=== PATIENT | male | born 1970 | race Caucasian/White ===

== ENCOUNTER → 2019-01-09 | Outpatient (CLI) | payer OTHER ==
--- NOTE | 2019-01-09 18:58 | REP ---
RIGHT WRIST, FOUR VIEWS: HISTORY: Pain. There is no acute fracture or dislocation. The joint spaces are normal in appearance. IMPRESSION:There is no acute fracture or dislocation. Electronically Signed by Jose Fraire MD 01/09/2019 06:58 P
== END ==
LOC: M WUC 17:56
PROVIDERS: ATTEND Physician Assistant
DX: M25.531 Pain in right wrist (principal)

== ENCOUNTER 2019-06-26 10:31 | Emergency (ER) | payer OTHER ==
[~2019-06-26] VITALS: Ht 182.9 cm; Wt 93.2 kg
[2019-06-26] MEDS ORDERED: OMEP10CASR PO (10:50)
[2019-06-26] MEDS ORDERED: DULO1CAP4 PO (10:50)
[2019-06-26] MEDS ORDERED: KETOROLAC 60 MG/2 ML VIAL (J1885) IM ONE (11:15)
[2019-06-26] MEDS ORDERED: LIDOCAINE 5% (LIDODERM) PATCH TD ONE (11:15)
[2019-06-26] MEDS ORDERED: CYCLOBENZAPRINE 10 MG TAB PO ONE (11:15)
[2019-06-26] MEDS ORDERED: ACETAMINOPHEN 500 MG TAB PO ONE (11:15)
--- NOTE | 2019-06-26 12:24 | REP ---
REASON: Muscle spasm. FINDINGS: Five views of the lumbosacral spine show no acute fracture, dislocation or subluxation. The intervertebral disc spaces are symmetric and well maintained. There is no spondylolisthesis. The pedicles are intact bilaterally and there is no destructive osseous lesions. IMPRESSION: Unremarkable lumbosacral spine series. Electronically Signed by Jayant Mchugh DO 06/26/2019 02:20 P
--- NOTE | 2019-06-26 12:26 | REP ---
REASON: Muscle spasm. AP pelvis shows bilateral moderate asymmetric hip joint space narrowing without prominent marginal osteophytosis or buttressing. There is no fracture. BILATERAL HIPS: There is a bilateral asymmetric hip joint space narrowing, which is mild to moderate. There is no fracture or buttressing. Electronically Signed by Jayant Mchugh DO 06/26/2019 02:20 P
[2019-06-26 12:33] VITALS: BP 139/82
[2019-06-26] MEDS ORDERED: KETO10TAB PO (12:36)
[2019-06-26] MEDS ORDERED: CYCL10TA PO (12:36)
[2019-06-26] MEDS ORDERED: **NOTE PATIENT COMMENT** MISC XX SCH (21:00)
== END 2019-06-26 12:43 | disposition home or self-care (01) ==
LOC: M ED 10:31
DX: G89.29 Other chronic pain (principal); M54.5 Low back pain; Z72.0 Tobacco use; Z79.899 Other long term (current) drug therapy
CPT/HCPCS: 72110; 73521; 96372; 99283; J1885

== ENCOUNTER 2021-02-20 10:45 | Emergency (ER) | payer OTHER ==
[~2021-02-20] VITALS: Ht 182.9 cm; Wt 94.0 kg
[~2021-02-20 10:45] MED LIST: CYCL-707 PO; DULO1CAP4 PO; KETO10TAB PO; OMEP10CASR PO
[2021-02-20] MEDS ORDERED: ATOR40TA75 PO (11:04)
[2021-02-20] MEDS ORDERED: LOSA50TA88 PO (11:04)
--- NOTE | 2021-02-20 11:22 | REP ---
INDICATION: MORTON COMPARISON: None. TECHNIQUE: Axial noncontrast images from the skull base to the vertex with coronal reformations. This CT examination was performed using the following dose reduction techniques: Automated exposure control, adjustment of mA and/or kv according to the patient's size, and use of iterative reconstruction technique. FINDINGS: The ventricles, sulci, and cisterns are normal in position and appearance. Killian-white differentiation is maintained. No acute intracranial hemorrhage, mass/mass effect, pathology or trauma/injury. No evidence for acute infarction. No extra-axial fluid collection. Calvarium is intact. Paranasal sinuses and mastoid air cells are clear. IMPRESSION: Normal noncontrast head CT. No evidence for acute intracranial pathology or trauma/injury. <Electronically signed by Sumeet Willoughby > 02/20/21 [id number]
[2021-02-20 12:29] VITALS: BP 138/95
--- NOTE | 2021-02-21 06:28 | ECGEPIP ---
[facility] - ED Test Date: 2021-02-20 Pat Name: REJI BENAVIDES Department: Room: - Gender: Male Packager: MARCELINO : 1970 Requested By: Laura Johnson Order Number: [id number] Reading MD: Melanie Miller Measurements Intervals [place] Rate: 81 P: 49 [place]: 164 QRS: 4 QRSD: 74 T: 31 QT: 346 QTc: 401 Interpretive Statements Normal sinus rhythm Nonspecific ST T wave changes Delayed R wave progression 01/10/[address] T wave changes Electronically Signed on 02-21-2021 6:28:50 EDT by Melanie Miller
== END 2021-02-20 12:30 | disposition home or self-care (01) ==
LOC: M ED 10:45
DX: I10 Essential (primary) hypertension (principal); G47.30 Sleep apnea, unspecified; F43.10 Post-traumatic stress disorder, unspecified; F17.200 Nicotine dependence, unspecified, uncomplicated; Z79.899 Other long term (current) drug therapy

== ENCOUNTER 2021-04-03 08:28 | Emergency (ER) | payer OTHER ==
[~2021-04-03] VITALS: Ht 182.9 cm; Wt 95.9 kg
[~2021-04-03 08:28] MED LIST changes: +ATOR40TA75 PO; +LOSA50TA88 PO
[2021-04-03] MEDS ORDERED: METH2.5T48 PO (08:32)
[2021-04-03] MEDS ORDERED: KETOROLAC 60MG 2ML VIAL IM ONE (09:30)
[2021-04-03] MEDS ORDERED: LIDOCAINE 5% (LIDODERM) PATCH TD ONE (09:30)
[2021-04-03 09:32] VITALS: BP 128/83
[2021-04-03] MEDS ORDERED: METH-1165 PO (09:33)
[2021-04-03] MEDS ORDERED: PRED20TA PO (09:33)
[2021-04-03] MEDS ORDERED: LIDO5DIS41 TD (09:33)
[2021-04-03] MEDS ORDERED: **NOTE PATIENT COMMENT** MISC XX SCH (21:00)
== END 2021-04-03 10:03 | disposition home or self-care (01) ==
LOC: M ED 08:28
DX: G89.29 Other chronic pain (principal); M54.5 Low back pain; I10 Essential (primary) hypertension; E78.5 Hyperlipidemia, unspecified; G47.33 Obstructive sleep apnea (adult) (pediatric); K21.9 Gastro-esophageal reflux disease without esophagitis; F33.9 Major depressive disorder, recurrent, unspecified; Z79.899 Other long term (current) drug therapy
CPT/HCPCS: 96372; 99283; J1885

== ENCOUNTER 2025-05-30 08:42 | Emergency (ER) | payer OTHER ==
[~2025-05-30] VITALS: Ht 182.9 cm; Wt 92.1 kg
[~2025-05-30 08:42] MED LIST changes: +LIDO1ADH93 TD; +LOSA50TA28 PO; -LOSA50TA88 PO; +METH-1165 PO; +METH2.5T48 PO; +PRED20TA PO
[2025-05-30] MEDS: LIDOCAINE 1% MDV 20 ML VIAL SC ONE (11:10)
[2025-05-30] MEDS ORDERED: BACT800T5 PO (11:53)
[2025-05-30 12:05] VITALS: BP 154/96; TEMP 97.9; O2SAT 96
== END 2025-05-30 12:06 | disposition home or self-care (01) ==
LOC: M ED 08:42
DX: L02.212 Cutaneous abscess of back [any part, except buttock and flank] (principal); E78.5 Hyperlipidemia, unspecified; I10 Essential (primary) hypertension; G47.30 Sleep apnea, unspecified; K21.9 Gastro-esophageal reflux disease without esophagitis; Z79.02 Long term (current) use of antithrombotics/antiplatelets; Z79.52 Long term (current) use of systemic steroids; Z79.899 Other long term (current) drug therapy; Z79.2 Long term (current) use of antibiotics

== ENCOUNTER 2025-08-23 10:20 | Day surgery (SDC) | payer OTHER ==
[~2025-08-23] VITALS: Ht 182.9 cm; Wt 91.2 kg
[~2025-08-23 10:20] MED LIST changes: +BACT800T5 PO; +CLOBETASOL; +KETO120S5; +TACR0.1O
[2025-08-23] MEDS ORDERED: LIDOCAINE 2% 100 MG/5 ML SDV (FOR ANES.) As Ordered ONE (10:43)
[2025-08-23 12:56] VITALS: TEMP 96.9
[2025-08-23 13:12] VITALS: BP 128/97; O2SAT 100
== END 2025-08-23 13:24 | disposition home or self-care (01) ==
LOC: M OPP 10:20
PROVIDERS: ATTEND Surgery
DX: D12.6 Benign neoplasm of colon, unspecified (principal); K64.2 Third degree hemorrhoids; Z86.0100 Personal history of colon polyps, unspecified; G47.30 Sleep apnea, unspecified; Z79.899 Other long term (current) drug therapy; F17.290 Nicotine dependence, other tobacco product, uncomplicated